=== PATIENT | male | born 1930 | race Caucasian/White ===

== ENCOUNTER 2016-06-02 07:35 | Day surgery (SDC) | payer MEDICARE, BC ==
[~2016-06-02 07:35] MED LIST: MOXI EYERT SCH; PRED EYERT SCH; Sodium Chloride 0.9% 5 ML Syringe FLUSH PRN; [UNRECOGNIZED DRUG - OTHER] EYERT SCH
[2016-06-02] MEDS ORDERED: Tobramycin 0.3% Ophth Drops 5 ML Bottle EYERT ONE (07:48)
[2016-06-02] MEDS: Cyclopentolate 1% Opth Soln 2 ML Bottle EYERT SCH ×3 (08:00→08:30)
[2016-06-02] MEDS: Phenylephrine 10% Ophth Soln 5 ML Bot EYERT SCH ×3 (08:05→08:35)
[2016-06-02] MEDS ORDERED: Lactated Ringers 1,000 ML IV SCH (08:30)
[2016-06-02] MEDS ORDERED: Tetracaine 0.5% 2 ML Bottle EYEBOTH ONE (09:49)
[2016-06-02] MEDS ORDERED: Water For Irrigation,Sterile 1,500 ML Container ONE (09:49)
[2016-06-02] MEDS ORDERED: Carbachol 0.01% Intraocular 1.5 ML Vial EYERT ONE (09:49)
[2016-06-02] MEDS ORDERED: Balanced Salt Solution Ophth Irrig 15 ML Bottle EYERT ONE (09:49)
[2016-06-02] MEDS ORDERED: Balanced Salt Solution Plus Ophth Irrig 500 ML Bottle IOCULAR ONE (09:49)
[2016-06-02] MEDS ORDERED: Dexamethasone/Neomycin/Polymyxin B Ophth Oint 3.5 GM Tube EYERT ONE (09:50)
[2016-06-02] MEDS ORDERED: Lidocaine 2% with EPINEPHrine 1:100,000 20 ML MDV ONE (09:50)
[2016-06-02] MEDS ORDERED: EPINEPHrine 1:1000 1 MG/ML SDV ONE (09:50)
[2016-06-02] MEDS ORDERED: Lidocaine 1% 10 ML MDV INJECT ONE (09:51)
[2016-06-02] MEDS ORDERED: Hyaluronate Sodium 1% 0.85 ML Syringe IOCULAR ONE ×2 (09:51)
[2016-06-02 10:28] VITALS: BP 149/68
--- NOTE | 2016-06-02 13:05 | PROC ---
DATE OF PROCEDURE: PHYSICIAN: Nahun Hoffman MD PRE-PROCEDURE DIAGNOSIS: Cataract, right eye. POST-PROCEDURE DIAGNOSIS: Cataract, right eye. PROCEDURE PERFORMED: Phacoemulsification with posterior chamber lens insertion, right eye. OPERATIVE PROCEDURE: The patient was taken to the operating room where appropriate anesthesia, sedation and monitoring were provided. It was noted that the patient's pupil was dilated poorly only to the level of approximately 4 mm. A retrobulbar block was given on the right side. The eye was massaged and it was found to be appropriately soft. The eye and eyelids were then prepped and draped in the usual sterile manner. A lid speculum was placed. A micro sharp blade was used to enter the anterior chamber superior-temporally. Xylocaine was irrigated into the eye through this site as well as Healon. Then using a 2.85 mm jesse blade an incision was made limbus temporally. Healon was irrigated into the eye and then using a cystitome, the anterior capsulorrhexis was created. The lens nucleus was hydrodissected using a 27 gauge cannula and balanced salt solution. The phacoemulsification unit was introduced through the temporal site and the Jeff spatula through the superior temporal site. In so doing, the anterior aspect of lens nucleus was phacoemulsified. It was noted during this process that the iris was floppy and it became smaller during the process of phacoemulsification. Therefore, a Malyugin Ring of 6.25 mm size was placed and the pupil was then maintained in a nicely dilated position. Remainder of the phacoemulsification was accomplished. Cortical fragments of the lens were removed using the irrigation aspiration unit. The posterior capsule was polished. Healon was irrigated into the eye. The posterior chamber lens was inserted and rotated into position. The Malyugin Ring was removed. The Healon was irrigated out of the eye. Miostat was irrigated into the eye and the pupil rounded nicely. A single interrupted 10-0 Nylon suture was placed through the temporal corneal incision site. Balanced salt solution was irrigated into the eye. The wound was tested and was found to be appropriately tight. Maxitrol ointment was placed into the patient's right eye. The eyelids were closed and an eye patch and kramer shield were placed. The patient left the operating room in good condition. /[id number]/MODL
== END 2016-06-02 10:40 | disposition home or self-care (01) ==
LOC: KA.SDS 07:35
PROVIDERS: ATTEND Ophthalmology
DX: H26.9 Unspecified cataract (principal); I25.810 Atherosclerosis of coronary artery bypass graft(s) without angina pectoris; I10 Essential (primary) hypertension; Z79.82 Long term (current) use of aspirin; Z79.899 Other long term (current) drug therapy; E78.00 Pure hypercholesterolemia, unspecified; G45.9 Transient cerebral ischemic attack, unspecified; Z95.1 Presence of aortocoronary bypass graft
CPT/HCPCS: 66984; A9270; C1780; J0171; J7120; 00142

== ENCOUNTER 2017-06-15 19:28 | Observation (INO) | payer MEDICARE, BC ==
[2017-06-15] MEDS ORDERED: Sodium Chloride 0.9% 5 ML Syringe FLUSH PRN (19:49)
[2017-06-15] MEDS ORDERED: Aspirin 81 MG Tab.Chew PO ONE (19:49)
--- NOTE | 2017-06-15 20:15 | EDM.PDOC ---
ED HPI GENERAL MEDICAL PROBLEM - General Chief Complaint: Cardiovascular Problem Stated Complaint: CHEST PAIN Time Seen by Provider: 06/15/17 20:01 Source of Information: Reports: Patient History Limitations: Reports: No Limitations - History of Present Illness INITIAL COMMENTS - FREE TEXT/NARRATIVE: Patient is an 87-year-old gentleman who presents to the emergency department this evening with a complaint of chest pain. Patient states while he was a passenger in a vehicle, He felt a pain in his chest that was described as like being hit with a bat. Pain lasted approximately a half hour until he returned home, at which time it gradually resolved. Patient contacted his grandson and patient was transported to the emergency department for evaluation. Patient states that he remembers a similar pain several years ago when he had a heart attack and did undergo coronary artery bypass surgery. Patient was on hypertension medication, but discontinued without knowledge of primary care doctor 3 months ago. Patient denies shortness of breath, nausea, vomiting, diarrhea, any trauma, fever, or headache. Onset: Today Onset Date: 06/15/17 Onset Time: 16:30 Duration: Minutes: Location: Reports: Chest Quality: Reports: Sharp Severity: Moderate Improves with: Reports: Rest Worsens with: Reports: None Context: Reports: Other (While at rest) Associated Symptoms: Reports: No Other Symptoms - Related Data Allergies Allergy/AdvReac Type Severity Reaction Status Date / Time No Known Drug Allergies Allergy Cannot Verified 06/15/17 19:34 Remember Past Medical History HEENT History: Reports: Cataract Cardiovascular History: Reports: Bypass, Hypertension, [place] Genitourinary History: Reports: BPH Neurological History: Reports: CVA - Past Surgical History HEENT Surgical History: Reports: Cataract Surgery Cardiovascular Surgical History: Reports: Coronary Artery Bypass Social & Family History - Tobacco Use Smoking Status *Q: Unknown Ever Smoked Second Hand Smoke Exposure: No - Caffeine Use Caffeine Use: Reports: Coffee - Alcohol Use Days Per Week of Alcohol Use: 0 - Recreational Drug Use Recreational Drug Use: No - Living Situation & Occupation Living situation: Reports: Single Occupation: Retired ED ROS GENERAL - Review of Systems Review Of Systems: ROS reveals no pertinent complaints other than HPI. Constitutional: Reports: No Symptoms HEENT: Reports: No Symptoms Respiratory: Reports: No Symptoms Cardiovascular: Reports: Chest Pain Endocrine: Reports: No Symptoms GI/Abdominal: Reports: No Symptoms : Reports: No Symptoms Musculoskeletal: Reports: No Symptoms Skin: Reports: No Symptoms Neurological: Reports: No Symptoms Psychiatric: Reports: No Symptoms Hematologic/Lymphatic: Reports: No Symptoms Immunologic: Reports: No Symptoms ED EXAM, GENERAL - Physical Exam Exam: See Below Exam Limited By: No Limitations General Appearance: Alert, WD/WN, No Apparent Distress Eye Exam: Bilateral Eye: Normal Inspection Nose: Normal Inspection, Normal Mucosa, No Blood Throat/Mouth: Normal Inspection, Normal Oropharynx, No Airway Compromise Head: Atraumatic, Normocephalic Neck: Normal Inspection, Supple, Non-Tender Respiratory/Chest: No Respiratory Distress, Lungs Clear, Normal Breath Sounds, No Accessory Muscle Use Cardiovascular: Regular Rate, Rhythm, No Murmur GI/Abdominal: Normal Bowel Sounds, Soft, Non-Tender, No Organomegaly, No Distention, No Abnormal Bruit, No Mass Back Exam: Normal Inspection. No: CVA Tenderness (L), CVA Tenderness (R) Extremities: Normal Inspection, No Pedal Edema Neurological: Alert, Oriented, Normal Cognition Psychiatric: Normal Affect, Normal Mood Skin Exam: Warm, Dry, Intact, Normal Color, No Rash Lymphatic: No Adenopathy EKG INTERPRETATION EKG Date: 06/15/17 Time: 19:40 Rhythm: NSR Rate (Beats/Min): 61 [place]: Normal P-Wave: Present QRS: Normal Comparison: No Change Course - Orders/Labs/Meds Orders: Active Orders 24 hr Category Date Time Status Cardiac Monitoring [RC] . DIRECTED Care 06/15/17 19:44 Active EKG Documentation Completion [RC] ASDIRECTED Care 06/15/17 19:51 Active Chest 1V Frontal [CR] Stat Exams 06/15/17 19:50 Ordered CKMB [CHEM] Stat Lab 06/15/17 19:49 Ordered COMPREHENSIVE METABOLIC PN,CMP [CHEM] Stat Lab 06/15/17 19:49 Ordered CREATINE KINASE,CK [CHEM] Stat Lab 06/15/17 19:49 Ordered LIPASE [CHEM] Stat Lab 06/15/17 19:49 Ordered PTT,PARTIAL THROMBOPLSTIN TIME [COAG] Stat Lab 06/15/17 19:49 Ordered TROPONIN I [CHEM] Stat Lab 06/15/17 19:49 Ordered Sodium Chloride 0.9% [Syrex Flush] Med 06/15/17 19:49 Active 5 ml FLUSH Q8HR PRN Saline Lock Insert [OM.PC] Stat Oth 06/15/17 19:49 Ordered EKG 12 Lead [EK] Stat Ther 06/15/17 19:50 Ordered Medication Orders Sodium Chloride (Syrex Flush) 5 ml FLUSH Q8HR PRN PRN Reason: Keep Vein Open Labs: Laboratory Tests 06/15/17 Range/Units 19:50 WBC 11.8 H (5.0-10.0) 10^3/uL RBC 5.22 (4.50-6.00) 10^6/uL Hgb 15.9 (13.0-17.0) g/dL Hct 48.2 (40.0-52.0) % MCV 92.4 H (82.0-92.0) fL MCH 30.5 (27.0-31.0) pg MCHC 33.1 (32.0-36.0) g/dL RDW 13.0 (11.5-14.5) % Plt Count 224 (150-300) 10^3/uL MPV 10.2 (7.4-10.4) fL Neut % (Auto) 62.0 (50.0-70.0) % Lymph % (Auto) 28.4 (20.0-40.0) % [place] % (Auto) 6.9 (2.0-8.0) % Eos % (Auto) 0.4 L (1.0-3.0) % Baso % (Auto) 2.3 H (0.0-1.0) % Neut # (Auto) 7.3 H (2.5-7.0) 10^3/uL Lymph # (Auto) 3.4 (1.0-4.0) 10^3/uL [place] # (Auto) 0.8 (0.1-0.8) 10^3/uL Eos # (Auto) 0.0 L (0.1-0.3) 10^3/uL Baso # (Auto) 0.3 H (0.0-0.1) 10^3/uL Meds: Medications Generic Name Dose Route Start Last Admin Trade Name Freq PRN Reason Stop Dose Admin Sodium Chloride 5 ml 06/15/17 19:49 Syrex Flush FLUSH Q8HR PRN Keep Vein Open Discontinued Medications Generic Name Dose Route Start Last Admin Trade Name Freq PRN Reason Stop Dose Admin Aspirin 324 mg 04/17/18 19:49 06/15/17 19:39 Aspirin PO 06/15/17 19:50 324 mg ONETIME ONE Administration - Radiology Interpretation Free Text/Narrative:: Chest x-ray shows no acute cardiopulmonary process - Re-Assessments/Exams Free Text/Narrative Re-Assessment/Exam: 06/15/17 20:47 Patient afebrile, nontoxic appearing, BP remains elevated at 190s over 90s and heart rate in the 60s. Patient denies chest pain, shortness of breath, or headache at this time. Patient given 10 mg, lisinopril by mouth. Case discussed with Dr. Gay, and patient will be admitted for observation and followed. Departure - Departure Time of Disposition: 20:50 Disposition: Refer to Observation Condition: Fair Clinical Impression: Chest pain Qualifiers: Chest pain type: unspecified Qualified Code(s): R07.9 - Chest pain, unspecified Hypertensive heart disease Qualifiers: Heart failure presence: without heart failure Qualified Code(s): I11.9 - Hypertensive heart disease without heart failure Referrals: PCP,Unknown [Primary Care Provider] - Catrina Hansen MD [Physician] - Forms: ED Department Discharge - My Orders Last 24 Hours: My Active Orders 06/15/17 19:44 Cardiac Monitoring [RC] . DIRECTED 06/15/17 19:49 CKMB [CHEM] Stat COMPREHENSIVE METABOLIC PN,CMP [CHEM] Stat CREATINE KINASE,CK [CHEM] Stat LIPASE [CHEM] Stat PTT,PARTIAL THROMBOPLSTIN TIME [COAG] Stat TROPONIN I [CHEM] Stat Sodium Chloride 0.9% [Syrex Flush] 5 ml FLUSH Q8HR PRN Saline Lock Insert [OM.PC] Stat 06/15/17 19:50 Chest 1V Frontal [CR] Stat EKG 12 Lead [EK] Stat 06/15/17 19:51 EKG Documentation Completion [RC] ASDIRECTED - Assessment/Plan Last 24 Hours: My Active Orders 06/15/17 19:44 Cardiac Monitoring [RC] . DIRECTED 06/15/17 19:49 CKMB [CHEM] Stat COMPREHENSIVE METABOLIC PN,CMP [CHEM] Stat CREATINE KINASE,CK [CHEM] Stat LIPASE [CHEM] Stat PTT,PARTIAL THROMBOPLSTIN TIME [COAG] Stat TROPONIN I [CHEM] Stat Sodium Chloride 0.9% [Syrex Flush] 5 ml FLUSH Q8HR PRN Saline Lock Insert [OM.PC] Stat 06/15/17 19:50 Chest 1V Frontal [CR] Stat EKG 12 Lead [EK] Stat 06/15/17 19:51 EKG Documentation Completion [RC] ASDIRECTED Assessment:: Chest pain, uncontrolled hypertension Plan: Admitted for observation to Dr. Gay
[2017-06-15 20:26] LABS: CHLORIDE,CL 106 mmol/L (98-115); SODIUM,NA 142 mmol/L (136-145)
[2017-06-15] MEDS ORDERED: Lisinopril 10 MG Tab PO ONE (20:42)
[2017-06-15] MEDS ORDERED: Lisinopril 10 MG Tab ONE (20:42)
--- NOTE | 2017-06-16 10:52 | PCM.HP ---
H&P History of Present Illness - General Date of Service: 06/16/17 Admit Problem/Dx: Admission Diagnosis/Problem Admission Diagnosis/Problem Chest pain Source of Information: Patient, Old Records, RN - History of Present Illness Initial Comments - Free Text/Narative: 87-year-old gentleman who was in her normal state of good health until yesterday when he was admitted through the ED last night due to anterior wall chest pain. Patient stated he was driving with a friend heading back home yesterday when he had a 15-20 minutes episode of anterior wall chest pain which he describes like "someone hit him in the chest with a baseball bat". He had no associated nausea or referred pain. States the pain lasted approximately 10 minutes-- he went home to his apartment laid down and attempted to call his therapist although the pain did subside he felt quite anxious about his pain recurring in the middle of night so he reported to the ED. history of myocardial infarction with CABG approximately 4 years ago similar pain. Patient was on metoprolol tartrate 12.5 twice a day at home but discontinued without knowledge of primary care doctor 3 months ago. Lower Chest Pain Score (Numeric/FACES): 2 - Related Data Allergies/Adverse Reactions: Allergies Allergy/AdvReac Type Severity Reaction Status Date / Time No Known Drug Allergies Allergy Cannot Verified 06/15/17 19:34 Remember Past Medical History HEENT History: Reports: Cataract, Impaired Vision Other HEENT History: glasses Cardiovascular History: Reports: Bypass, Hypertension, [place] Other Cardiovascular History: 5-7 years ago Genitourinary History: Reports: BPH Neurological History: Reports: CVA Other Neuro History: CVA 3 years ago - Infectious Disease History Infectious Disease History: Reports: Other (See Below) Other Infectious Disease History: not sure - Past Surgical History HEENT Surgical History: Reports: Cataract Surgery Cardiovascular Surgical History: Reports: Coronary Artery Bypass GI Surgical History: Reports: Hernia, Inguinal Social & Family History - Family History HEENT: Reports: None Cardiac: Reports: None, Other (See Below) (sister and brother with unknown heart disease,) Respiratory: Reports: None GI: Reports: None : Reports: None OBGYN: Reports: None Musculoskeletal: Reports: None Neurological: Reports: None Psychiatric: Reports: None Endocrine/Metabolic: Reports: Other (See Below) (nephew with diabetes,) Hematologic: Reports: None Immunologic: Reports: None Dermatologic: Reports: None Oncologic: Reports: None, Other (See Below) - Tobacco Use Smoking Status *Q: Unknown Ever Smoked Second Hand Smoke Exposure: No - Caffeine Use Caffeine Use: Reports: Coffee - Alcohol Use Days Per Week of Alcohol Use: 0 - Recreational Drug Use Recreational Drug Use: No - Living Situation & Occupation Living situation: Reports: Single Occupation: Retired H&P Review of Systems - Review of Systems: Review Of Systems: See Below General: Reports: No Symptoms HEENT: Reports: No Symptoms Pulmonary: Reports: No Symptoms Cardiovascular: Denies: Chest Pain, Edema Gastrointestinal: Reports: No Symptoms Genitourinary: Reports: No Symptoms Musculoskeletal: Reports: No Symptoms Skin: Reports: No Symptoms Psychiatric: Reports: No Symptoms Neurological: Reports: No Symptoms Hematologic/Lymphatic: Reports: No Symptoms Immunologic: Reports: No Symptoms Exam - Exam Exam: See Below - Vital Signs Vital Signs: Last Vital Signs Temp 98.2 F 06/16/17 06:27 Pulse 50 L 06/16/17 06:27 Resp 18 06/16/17 06:27 BP 131/81 06/16/17 06:27 Pulse Ox 96 06/16/17 07:10 Weight: 165 lb - Exam Quality Assessment: No: Supplemental Oxygen General: Alert, Oriented, 4 HEENT: Conjunctiva Clear, Hearing Intact Neck: Supple, Trachea Midline, 2 Lungs: Clear to Auscultation, Normal Respiratory Effort Cardiovascular: Regular Rate, Regular Rhythm GI/Abdominal Exam: Normal Bowel Sounds, Soft, Non-Tender, No Organomegaly, No Distention (Male) Exam: No Hernia, Deferred Rectal (Males) Exam: Deferred Extremities: No Pedal Edema, Normal Capillary Refill Skin: Warm, Dry, Intact Neurological: Cranial Nerves Intact, Reflexes Equal Bilateral Neuro Extensive - Mental Status: Alert, Oriented x3, Normal Mood/Affect, Normal Cognition Neuro Extensive - Motor, Sensory, Reflexes: CN II-XII Intact Psychiatric: Alert, Normal Affect, Normal Mood - Patient Data Lab Results Last 24 hrs: Laboratory Results - last 24 hr 06/15/17 06/15/17 06/15/17 Range/Units 19:50 19:50 19:50 WBC 11.8 H (5.0-10.0) 10^3/uL RBC 5.22 (4.50-6.00) 10^6/uL Hgb 15.9 (13.0-17.0) g/dL Hct 48.2 (40.0-52.0) % MCV 92.4 H (82.0-92.0) fL MCH 30.5 (27.0-31.0) pg MCHC 33.1 (32.0-36.0) g/dL RDW 13.0 (11.5-14.5) % Plt Count 224 (150-300) 10^3/uL MPV 10.2 (7.4-10.4) fL Neut % (Auto) 62.0 (50.0-70.0) % Lymph % (Auto) 28.4 (20.0-40.0) % Lane % (Auto) 6.9 (2.0-8.0) % Eos % (Auto) 0.4 L (1.0-3.0) % Baso % (Auto) 2.3 H (0.0-1.0) % Neut # (Auto) 7.3 H (2.5-7.0) 10^3/uL Lymph # (Auto) 3.4 (1.0-4.0) 10^3/uL Lane # (Auto) 0.8 (0.1-0.8) 10^3/uL Eos # (Auto) 0.0 L (0.1-0.3) 10^3/uL Baso # (Auto) 0.3 H (0.0-0.1) 10^3/uL APTT 24.9 (20.8-31.2) SEC Sodium 142 (136-145) mmol/L Potassium 4.1 (3.3-5.3) mmol/L Chloride 106 (98-115) mmol/L Carbon Dioxide 28.4 (21.0-32.0) mmol/L BUN 18 (6-25) mg/dL Creatinine 1.07 (0.51-1.17) mg/dL Est Cr Clr Drug Dosing 53.41 mL/min Estimated GFR (MDRD) > 60 mL/min Glucose 97 (70-110) mg/dL Calcium 9.7 (8.7-10.3) mg/dL Total Bilirubin 1.4 H (0.2-1.0) mg/dL AST 25 (15-37) U/L ALT 23 (12-78) U/L Alkaline Phosphatase 76 (46-116) IU/L Creatine Kinase 69 (26-276) U/L CK-MB (CK-2) 1.00 (0.00-4.30) ng/mL Troponin I < 0.04 (0.00-0.070) ng/mL Total Protein 7.8 (6.4-8.2) g/dL Albumin 3.66 (3.00-4.80) g/dL Lipase 114 (73-393) U/L 06/16/17 Range/Units 07:35 WBC (5.0-10.0) 10^3/uL RBC (4.50-6.00) 10^6/uL Hgb (13.0-17.0) g/dL Hct (40.0-52.0) % MCV (82.0-92.0) fL MCH (27.0-31.0) pg MCHC (32.0-36.0) g/dL RDW (11.5-14.5) % Plt Count (150-300) 10^3/uL MPV (7.4-10.4) fL Neut % (Auto) (50.0-70.0) % Lymph % (Auto) (20.0-40.0) % Lane % (Auto) (2.0-8.0) % Eos % (Auto) (1.0-3.0) % Baso % (Auto) (0.0-1.0) % Neut # (Auto) (2.5-7.0) 10^3/uL Lymph # (Auto) (1.0-4.0) 10^3/uL Lane # (Auto) (0.1-0.8) 10^3/uL Eos # (Auto) (0.1-0.3) 10^3/uL Baso # (Auto) (0.0-0.1) 10^3/uL APTT (20.8-31.2) SEC Sodium (136-145) mmol/L Potassium (3.3-5.3) mmol/L Chloride (98-115) mmol/L Carbon Dioxide (21.0-32.0) mmol/L BUN (6-25) mg/dL Creatinine (0.51-1.17) mg/dL Est Cr Clr Drug Dosing mL/min Estimated GFR (MDRD) mL/min Glucose (70-110) mg/dL Calcium (8.7-10.3) mg/dL Total Bilirubin (0.2-1.0) mg/dL AST (15-37) U/L ALT (12-78) U/L Alkaline Phosphatase (46-116) IU/L Creatine Kinase (26-276) U/L CK-MB (CK-2) (0.00-4.30) ng/mL Troponin I < 0.04 (0.00-0.070) ng/mL Total Protein (6.4-8.2) g/dL Albumin (3.00-4.80) g/dL Lipase (73-393) U/L Result Diagrams: 06/15/17 19:50 06/15/17 19:50 Problem List Initiated/Reviewed/Updated: Yes Orders Last 24hrs: Active Orders 24 hr Category Date Time Status Patient Status [ADT] Routine ADT 06/15/17 20:42 Ordered Cardiac Monitoring [RC] 0300,0700,1100,1500,1900,2300 Care 06/15/17 19:44 Active EKG Documentation Completion [RC] ASDIRECTED Care 06/15/17 19:51 Active Oxygen Therapy [RC] PRN Care 06/15/17 20:42 Active VTE/DVT Education [RC] PER UNIT ROUTINE Care 06/15/17 20:42 Active Vital Signs [RC] 0300,0700,1100,1500,1900,2300 Care 06/15/17 20:42 Active Heart Healthy Diet [DIET] Diet 06/16/17 Breakfast Active Sodium Chloride 0.9% [Syrex Flush] Med 06/15/17 19:49 Active 5 ml FLUSH Q8HR PRN Saline Lock Insert [OM.PC] Stat Oth 06/15/17 19:49 Ordered Resuscitation Status Routine Resus Stat 06/15/17 20:42 Ordered Medication Orders Sodium Chloride (Syrex Flush) 5 ml FLUSH Q8HR PRN PRN Reason: Keep Vein Open Assessment/Plan Comment:: HISTORY OF PRESENT ILLNESS 87-year-old gentleman who was in her normal state of good health until yesterday when he was admitted through the ED last night due to anterior wall chest pain. Patient stated he was driving with a friend heading back home yesterday when he had a 15-20 minutes episode of anterior wall chest pain which he describes like "someone hit him in the chest with a baseball bat". He had no associated nausea or referred pain. States the pain lasted approximately 10 minutes-- he went home to his apartment laid down and attempted to call his therapist although the pain did subside he felt quite anxious about his pain recurring in the middle of night so he reported to the ED. history of myocardial infarction with CABG approximately 4 years ago similar pain. Patient was on metoprolol tartrate 12.5 twice a day at home but discontinued without knowledge of primary care doctor 3 months ago. pertinent ED workup bradycardia EKG, NSR Older septal infarct Negative troponin Normal electrolytes principal hospital problem chest pain, questionable etiology, MD has been ruled out, ECHO, March 2014 ( completed due to TIA/CVA), EF 55%, left ventricle normal size, normal function, no wall abnormality, left atrium, size normal, right atrium size normal. Chronic problems HLD, most recent lipids April 2016, cholesterol 196, HDL 52, LDL 125, triglycerides 96. on statin therapy, likely needs more intensification, Repeat in a.m. CAD, on ASA, repeat lipids, no ischemic picture, History of CABG, History of CVA HTN, add low-dose carvedilol and lisinopril BPH, on Flomax Disposition, remain in observation with telemetry status to monitor for repeat chest pain, add low-dose JONAH inhibitor and beta myron. anticipate discharge in a.m. repeat lipids in the a.m, may need intensification of statin therapy
[2017-06-16] MEDS: Carvedilol 6.25 MG Tab PO SCH ×2 (12:03→18:07)
[2017-06-16] MEDS ORDERED: Atropine 0.1 MG/ML 10 ML Syringe IVPUSH PRN (12:16)
[2017-06-16] MEDS ORDERED: EPINEPHrine 1:10,000 1 MG/10 ML Syringe IVPUSH PRN (12:18)
[2017-06-16] MEDS ORDERED: Nitroglycerin 0.4 MG Tab.SL SL PRN (12:19)
[2017-06-16] MEDS ORDERED: Lidocaine 2% 100 MG/5 ML Syringe IVPUSH PRN (12:20)
[2017-06-16] MEDS: Lisinopril 5 MG Tab PO SCH (16:57)
[2017-06-16] MEDS ORDERED: atorvaSTATin 40 MG Tab PO SCH (21:00)
[2017-06-17 06:05] VITALS: BP 127/71
[2017-06-17] MEDS: Carvedilol 6.25 MG Tab PO SCH (07:55)
[2017-06-17] MEDS: Lisinopril 5 MG Tab PO SCH (09:36)
--- NOTE | 2017-06-17 10:09 | PCM.DCSUM1 ---
Discharge Summary - Hospital Course Free Text/Narrative:: Date of admission: 06/15/17 Date of discharge: 06/17/17 Admission diagnoses: 1. Chest pain 2. CAD 3. Hx CABG 4. Hx CVA 5. HTN 6. HLD 7. BPH Discharge diagnoses: 1. Chest pain, resolved 2. CAD 3. Hx CABG 4. Hx CVA 5. HTN 6. HLD 7. BPH Consultations: None Procedures: None Hospital course: HPI Summary: 87-year-old gentleman who was in his normal state of good health until 06/15/17 when he developed anterior wall chest pain. Patient stated he was driving with a friend heading back home yesterday when he had a 15-20 minutes episode of anterior wall chest pain which he describes like "someone hit him in the chest with a baseball bat". He had no associated nausea or referred pain. States the pain lasted approximately 10 minutes and he went home to his apartment laid down and attempted to call his therapist although the pain did subside he felt quite anxious about his pain recurring in the middle of night so he reported to the ED. He has a history of myocardial infarction with CABG approximately 4 years ago similar pain. Patient had discontinued all his prior medications several months prior. ED Course: Bradycardia noted on telemetry, EKG with NSR and evidence of prior septal infarct, negative troponin, and normal electrolytes. He was admitted for serial troponins and cardiovascular monitoring. Observation Course: He had no further episodes of chest pain and maintained in sinus rhythm with predominant bradycardia on telemetry. Repeat troponins and electrolytes wnl. Lipid panel with hyperlipidemia. Statin, ASA, and ACEI were restarted, but given persistent bradycardia, beta-myron was not initiated. He was deemed ready for discharge back to home with the following instructions: - Restart ASA 81mg daily, atorvastatin 40mg daily, and lisinopril 5mg daily - Follow-up at [facility] in 5-7 days - Discharge Data Discharge Date: 06/17/17 Discharge Disposition: Home, Self-Care 01 Condition: Good - Patient Instructions Diet: Heart Healthy Diet Notify Provider of: Increased Pain - Discharge Plan Prescriptions/Med Rec: Aspirin [Halfprin] 81 mg PO DAILY #30 tab.ec atorvaSTATin [Lipitor] 40 mg PO BEDTIME #30 tablet Lisinopril [Prinivil] 5 mg PO DAILY #30 tablet Home Medications: Home Meds Aspirin [Halfprin] 81 mg PO DAILY #30 tab.ec 06/17/17 [Rx] Lisinopril [Prinivil] 5 mg PO DAILY #30 tablet 06/17/17 [Rx] atorvaSTATin [Lipitor] 40 mg PO BEDTIME #30 tablet 06/17/17 [Rx] Referrals: Carisa Lu, [facility] [Nurse Practitioner] - (Follow-up in [facility] next week; may be with another provider if Carisa not available.) - Discharge Summary/Plan Comment DC Time >30 min.: Yes - General Info Subjective Update: Mr. Edge reports no recurrence of chest pain or any new complaints. Ambulating well. Tolerating diet without difficulty. Voiding and stooling well. Desires discharge to home. No nursing concerns. - Patient Data Vitals - Most Recent: Last Vital Signs Temp 36.8 C 06/17/17 06:05 Pulse 50 L 06/17/17 07:55 Resp 14 06/17/17 06:05 BP 127/71 06/17/17 09:36 Pulse Ox 98 06/17/17 06:40 Weight - Most Recent: 74.843 kg I&O - Last 24 hours: Intake & Output 06/16/17 06/17/17 06/17/17 22:59 06:59 14:59 Intake Total 400 50 Balance 400 50 Lab Results - Last 24 hrs: Laboratory Results - last 24 hr 06/17/17 Range/Units 07:35 Triglycerides 114 (30-150) mg/dL Cholesterol 212 H (100-199) mg/dL LDL Cholesterol, Calc 141 H (0-100) mg/dL HDL Cholesterol 48 (40-60) mg/dL Med Orders - Current: Current Medications Atorvastatin Calcium (Lipitor) 40 mg PO BEDTIME [facility] Last Admin: 06/16/17 21:05 Dose: 40 mg Atropine Sulfate (Atropine 0.1 Mg/Ml) 0.1 mg IVPUSH ONETIME PRN PRN Reason: Bradycardia Carvedilol (Coreg) 3.125 mg PO BIDMEALS [facility] Last Admin: 06/17/17 07:55 Dose: Not Given Epinephrine HCl (Epinephrine 1:10,000) 1 mg IVPUSH ONETIME PRN PRN Reason: Cardiac changes Lidocaine HCl (Xylocaine 2%) 0 mg IVPUSH ASDIRECTED PRN PRN Reason: Chest Pain Lisinopril (Prinivil) 5 mg PO DAILY JANAK Last Admin: 06/17/17 09:36 Dose: 5 mg Nitroglycerin (Nitrostat) 0.4 mg SL Q5M PRN PRN Reason: Chest Pain Sodium Chloride (Syrex Flush) 5 ml FLUSH Q8HR PRN PRN Reason: Keep Vein Open Discontinued Medications Aspirin (Aspirin) 324 mg PO ONETIME ONE Stop: 06/15/17 19:50 Last Admin: 06/15/17 19:39 Dose: 324 mg Lisinopril (Prinivil) 10 mg PO ONETIME ONE Stop: 06/15/17 20:43 Last Admin: 06/15/17 20:43 Dose: 10 mg Lisinopril (Prinivil) Confirm Administered Dose 10 mg .ROUTE .STK-MED ONE Stop: 06/15/17 20:43 Last Admin: 06/15/17 20:51 Dose: Not Given - Exam Physical Findings Comments:: GENERAL: Well-appearing elderly male sitting in bedside chair in no acute distress. HEENT: Normocephalic, atraumatic. Conjunctiva clear. Nares patent without discharge. Mucous membranes moist. NECK: Supple, no masses. CV: Regular rate and rhythm, no murmurs, rubs, or gallops. 2+ radial pulses. PULMONARY: Normal effort, clear to auscultation bilaterally, no wheezes, rales, or rhonchi. ABDOMEN: Positive bowel sounds, soft, nontender, nondistended. EXTREMITIES: No edema, cyanosis, or clubbing. MUSCULOSKELETAL: Moves all extremities well. NEUROLOGICAL: No obvious deficits. DERMATOLOGIC: No rashes or suspicious lesions in exposed areas. PSYCHIATRIC: Alert, interactive, appropriate affect, talkative.
== END 2017-06-17 11:30 | disposition home or self-care (01) ==
LOC: KA.ED 19:28 → KA.MS 20:42
PROVIDERS: ADMIT Physician Assistant Surgical; ATTEND Family Medicine
DX: R07.9 Chest pain, unspecified (principal); I25.10 Atherosclerotic heart disease of native coronary artery without angina pectoris; I10 Essential (primary) hypertension; E78.5 Hyperlipidemia, unspecified; N40.0 Benign prostatic hyperplasia without lower urinary tract symptoms; I25.2 Old myocardial infarction; Z79.82 Long term (current) use of aspirin; Z79.899 Other long term (current) drug therapy
CPT/HCPCS: 36415; 71045; 80053; 80061; 82550; 82553; 83690; 84484; 85025; 85730; 93005; 99285; A9270-GY